=== PATIENT | female | born 1995 | race Caucasian/White ===

== ENCOUNTER 2022-11-21 12:36 | Outpatient (CLI) | payer OTHER, SELFPAY ==
[2022-11-21 12:47] VITALS: BMI 33.3
[2022-11-21 13:23] LABS: Microscopic, Urine URINE MICROSCOPIC (MICROSCOPIC)
[2022-11-21 13:28] VITALS: BP 133/84; PULSE 78; RESP 18; TEMP 36.9; O2SAT 99; BMI 33.3
[2022-11-21 13:29] LABS: Appearance,Urine CLEAR (Clear); Bilirubin,Urine Negative (Negative); Blood, Urine Negative (Negative); Color,Urine YELLOW (Yellow); Glucose,Urine (UA) Negative (Negative); Ketones,Urine Negative (Negative); Leukocyte Esterase,Urine Negative (Negative); Nitrate,Urine Negative (Negative); Protein,Urine Negative (Negative); Specific Gravity, Urine 1.015 (1.005-1.030); Urobilinogen,Urine 0.2 EU/dl (0.2)
[2022-11-21 13:55] LABS: Amphetamine/Metha Screen,Urine Negative ng/ml (<1000); Barbiturates Screen,Urine Negative ng/ml (<200); Benzodiazepines Screen,Urine Negative ng/ml (<200); Cocaine Screen,Urine Negative ng/ml (<300)
[2022-11-21 14:11] LABS: Cannabinoid Screen,Urine Negative ng/ml (<50); Methadone Screen,Urine Negative ng/ml (<300); Phencyclidine Screen,Urine Negative ng/ml (<25)
[2022-11-21 14:20] LABS: Opiate Screen,Urine Negative ng/ml (<300)
== END 2022-11-21 13:52 | disposition home or self-care (01) ==
LOC: OBOUT 12:38 → OB 12:38
PROVIDERS: Visit Provider Nurse Practitioner Obstetrics & Gynecology
DX: O60.03 Preterm labor without delivery, third trimester (principal); Z3A.37 37 weeks gestation of pregnancy
CPT/HCPCS: 59025; 80305; 81001; G0463

== ENCOUNTER 2022-11-25 17:48 | Outpatient (CLI) | payer OTHER, SELFPAY ==
[2022-11-25 18:05] VITALS: BMI 32.8
[2022-11-25 18:10] VITALS: BMI 32.8
[2022-11-25 18:46] LABS: Microscopic, Urine URINE MICROSCOPIC (MICROSCOPIC)
[2022-11-25 18:52] LABS: Appearance,Urine CLEAR (Clear); Bilirubin,Urine Negative (Negative); Blood, Urine Negative (Negative); Color,Urine YELLOW (Yellow); Glucose,Urine (UA) Negative (Negative); Ketones,Urine Negative (Negative); Leukocyte Esterase,Urine Negative (Negative); Nitrate,Urine Negative (Negative); PH,Urine 6.5 (5.0-8.5); Protein,Urine Negative (Negative); Specific Gravity, Urine 1.015 (1.005-1.030)
[2022-11-25 19:05] LABS: Amphetamine/Metha Screen,Urine Negative ng/ml (<1000); Bacteria,Urine Trace /lpf
[2022-11-25 19:06] LABS: Barbiturates Screen,Urine Negative ng/ml (<200)
[2022-11-25 19:07] LABS: Benzodiazepines Screen,Urine Negative ng/ml (<200); Cannabinoid Screen,Urine Negative ng/ml (<50)
[2022-11-25 19:08] LABS: Cocaine Screen,Urine Negative ng/ml (<300); Methadone Screen,Urine Negative ng/ml (<300)
[2022-11-25 19:09] LABS: Phencyclidine Screen,Urine Negative ng/ml (<25)
[2022-11-25 19:10] LABS: Opiate Screen,Urine Negative ng/ml (<300)
== END 2022-11-25 19:30 | disposition home or self-care (01) ==
LOC: OBOUT 17:50 → OB 17:50
PROVIDERS: PCP Obstetrics & Gynecology; Visit Provider Nurse Practitioner Obstetrics & Gynecology
DX: O47.03 False labor before 37 completed weeks of gestation, third trimester (principal); Z3A.37 37 weeks gestation of pregnancy
CPT/HCPCS: 59025; 80305; 81001; G0463

== ENCOUNTER 2022-12-03 14:04 | Inpatient (IN) | payer OTHER, SELFPAY ==
[2022-12-03] VITALS (12 sets, daily range): BP systolic 112–156; BP diastolic 75–90; PULSE 67–96; RESP 14–18; TEMP 36.2–36.8; O2SAT 96–100; BMI 32.8
[2022-12-03 09:03] LABS: Microscopic, Urine URINE MICROSCOPIC (MICROSCOPIC)
[2022-12-03 09:12] LABS: Basophils % 0.4 % (0.1-2.0); Eosinophils # 0.1 K/mm3 (0.0-0.4); Eosinophils % 1.2 % (0.1-12.0); Hematocrit 31.8 % (37.0-47.0); Hemoglobin 10.1 g/dL (12.2-16.2); Lymphocytes # 1.8 K/mm3 (0.7-4.5); Lymphocytes % 25.9 % (10-50); Mean Corpuscular HGB Conc 31.9 g/dL (31.8-35.4); Mean Corpuscular Hemoglobin 28.2 pg (27.0-31.2); Mean Corpuscular Volume 88.5 fl (81-99); Mean Platelet Volume 10.8 fl (7.4-10.4); Monocytes # 0.3 K/mm3 (0.1-1.0); Monocytes % 4.8 % (1.7-9.3); Neutrophils # 4.7 K/mm3 (1.8-7.8); Neutrophils % 67.8 % (37.0-80.0); Platelet Count 245 K/mm3 (142-424); Red Cell Distribution Width 15.1 % (11.5-17.5); White Blood Count 6.9 K/mm3 (4.8-10.8)
[2022-12-03 09:17] LABS: Anion Gap 13.2 mEq/L (5-15); Blood Urea Nitrogen 4 mg/dl (7-17); Calcium 8.5 mg/dl (8.4-10.2); Carbon Dioxide 21 mmol/L (22.0-30.0); Chloride 108 mmol/L (98-107); Creatinine Clearance Estimated 252 mL/min (50-200); Estimated Glomerular Filt Rate 147 ml/min (>60); GFR (African American) 178 ML/MIN (>60); Glucose 72 mg/dl (74-100); Potassium 4.2 mmoL/L (3.5-5.1); Sodium 138 mmol/L (136-145)
--- NOTE | 2022-12-03 10:10 | EXP.HP ---
History of Present Illness *Admission Date: 12/03/22 *Reason for visit:: contractions/ pain *History of present illness: Cecily is a 27yo who is presenting today for abdominal pain, and contractions at 38w6d gestation. LOIS: [] based on []. She is a previous section and desires a repeat with salpingectomy. She declines trial of labor as she would like her salpingectomy at the time of delivery. She had a CS with her G1 secondary to NR FHT and then two successful VBACs. is also complicated by tobacco use, obesity, and scant care. On presentation, patient denied leakage of fluid, vaginal bleeding, vaginal discharge. Reports painful contractions. Endorses good movement. No significant medical or surgical history. reports an allergy to amoxicillin that causes her throat to swell. GBS bacturia B+/ AB neg/RNI/ / HBV NR/ HCV NR/ RPR NR/ HIV NR/NG&CT neg/UDS neg PFSH PFS Disclaimer: The information contained in this section may have been updated after the patient was seen, as this information can be updated by other users. Medical History delivery delivered (vaginal after ) Surgical History History of cholecystectomy Family History Other Alcoholism Anemia Asthma Cancer Coronary artery disease Diabetes Heart attack Hyperlipidemia Hypertension Kidney disease Stroke Substance abuse Social History Smoking Status: Current every day smoker alcohol intake: never substance use type: denies use current occupational status: employed Travel in the last 8 weeks: None Review of Systems Review of Systems Review of systems (narrative): Const: Denies headaches, fever/chills, weakness Eyes: Denies change in vision Cardiorespiratory: Denies chest pain, shortness of breath, and cough GI: + abdominal pain, change in BM, nausea, vomiting, constipation, diarrhea : denies pelvic pain, genital lesions, vaginal itching and odor; denies urinary urgency, frequency, dysuria and hematuria Psych: Denies depression and anxiety Meds Home Medications and Allergies Home Medications Medication Instructions Recorded Confirmed Type ferrous sulfate 325 mg (65 mg 325 mg PO DAILY 11/24/22 11/30/22 History iron) tablet (FeroSul) vits no.126-ferrous fum tab PO DAILY 11/24/22 11/30/22 History 28 mg iron-folic acid 800 mcg tablet (Classic ) pyridoxine (vitamin B6) 50 mg 50 mg PO DAILY 11/24/22 11/30/22 History capsule (Vitamin B-6) New Prescriptions to Start Prescriptions: Allergies Allergy/AdvReac Type Severity Reaction Status Date / Time amoxicillin Allergy Verified 11/30/22 09:04 Exam Data for Last 24 hours Vital signs and Labs for Last 24 Hours: Laboratory Results - last 24 hr 12/03/22 08:55: WBC 6.9, RBC 3.60 L, Hgb 10.1 L, Hct 31.8 L, MCV 88.5, MCH 28.2, MCHC 31.9, RDW 15.1, Plt Count 245, MPV 10.8 H, Neut % (Auto) 67.8, Lymph % (Auto) 25.9, [place] % (Auto) 4.8, Eos % (Auto) 1.2, Baso % (Auto) 0.4, Neut # (Auto) 4.7, Lymph # (Auto) 1.8, [place] # (Auto) 0.3, Eos # (Auto) 0.1, Baso # (Auto) 0.0, Sodium 138, Potassium 4.2, Chloride 108 H, Carbon Dioxide 21 L, Anion Gap 13.2, BUN 4 L, Creatinine 0.50 L, Estimated Creat Clear 252, Estimated GFR 147, Est GFR ( Amer) 178, Glucose 72 L, Calcium 8.5 I & O for Last 24 hours: Intake & Output 11/30/22 12/01/22 12/02/22 12/03/22 23:59 23:59 23:59 23:59 Weight 210 lb Constitutional Constitutional: no acute distress *Routine HEENT Exam Head: Present normocephalic Eye: Present EOMI and PERRL ENT: Present mucous membranes moist *Routine Neck Exam Neck: Present supple; Absent lymphadenopathy *Routine Respiratory Exam Respir
[2022-12-03 10:15] LABS: Appearance,Urine CLEAR (Clear); Blood, Urine Negative (Negative); Color,Urine YELLOW (Yellow); Glucose,Urine (UA) Negative (Negative); Ketones,Urine Negative (Negative); Leukocyte Esterase,Urine 1+ (Negative); Nitrate,Urine Negative (Negative); PH,Urine 6.5 (5.0-8.5); Protein,Urine TRACE (Negative); Specific Gravity, Urine >= 1.030 (1.005-1.030)
[2022-12-03 10:22] LABS: Bilirubin,Urine Negative (Negative)
[2022-12-03 10:28] LABS: Benzodiazepines Screen,Urine Negative ng/ml (<200)
[2022-12-03 10:29] LABS: Amphetamine/Metha Screen,Urine Negative ng/ml (<1000); Barbiturates Screen,Urine Negative ng/ml (<200)
[2022-12-03 10:30] LABS: Cannabinoid Screen,Urine Negative ng/ml (<50); Methadone Screen,Urine Negative ng/ml (<300)
[2022-12-03 10:31] LABS: Bacteria,Urine 1+ /lpf; Cocaine Screen,Urine Negative ng/ml (<300); Squamous Epithelial Cell,Urine Occasional #/hpf (0-5)
[2022-12-03 10:32] LABS: Opiate Screen,Urine Negative ng/ml (<300); Phencyclidine Screen,Urine Negative ng/ml (<25)
--- NOTE | 2022-12-03 12:57 | SW/DCPLANNER ---
Addendum entered by Oriana Whyte 12/06/22 12:14: Per OB Nursing staff (Chitra) patient was appropriate w/ infant and urine drug screen was negative. Patient discharged home over the weekend. Original Note: I received a referral on this patient regardin visits, lives with family and unsure of custody of other children. Patient is planned to have a CSection this afternoon. Patient stated that is expected to deliver a male ( Norberto Buckley Carito). Patient stated that 's father is NOT involved. Patient will reside with her grandmother (Claire Palmer) and three other children (Jordan Carito 10/08/13, [place] 06/25/15 and [place]aliguanako Carito 09/30/20) at [address] [place] [address]. Patient's contact number is [phone]. Patient stated that she did have a brief Social Service interaction with three other children: open and closed case/children never removed. Patient stated that she will be established with [facility] and has the following items at home: crib, carseat, clothing, diapers and plans to bottle feed. PED MD will be Dr Powell. Patient stated that she will have transportation to all follow up appointments. Patient explained that she only had three visits due to waiting on for appointment, one at then transferred to [facility] w/ Dr Nunez. OB staff stated that after delivery infant urine drug screen and cord will be collected. I have asked OB staff to please follow up with myself or Central Intake after delivery if any further assistance is needed.
--- NOTE | 2022-12-03 15:55 | EXP.OP.NOTE ---
Date of procedure: 12/03/22 Pre-op Diagnosis:: 1. 38 weeks 6days gestation, Veliz 2. Previous delivery, desires repeat 3. Presented in Labor 4. Advanced cervical dilation 5. Rh Positive Post-op Diagnosis:: 1. 38 weeks 6days gestation, Veliz 2. Previous delivery, desires repeat 3. Presented in Labor 4. Advanced cervical dilation 5. Rh Positive Procedure performed:: Repeat Delivery with bilateral salpingectomy Surgeon:: Rafia Nunez DO Car Repair Supervisor(s):: Christian Thomason DO REBEAMER:: Other (Sean Gunn) Anesthesia: spinal Estimated blood loss (mL): 800 Operative findings:: 1. Live viable Male infant: Jared. Weight: 6pounds 12ounces. Apgars 9 and 10 at 1 and 5 minutes respectively 2. Normal-appearing fallopian tubes and ovaries bilaterally Operative note:: Medications: 5 mg/kg IV gentamicin and 900 mg of IV clindamycin EBL: 800mL Clothing Cutter: Dr. Story Summary: Ninoska Arzate is a 27yo who came to L&D with regular painful contractions that she reported started last night. She was noted to be 5cm and decision was made to proceed with a repeat delivery and bilateral salpingectomy. Procedure explained in its entirety. The patient was counseled on the risks and benefits of section including bleeding, vascular injury, infection, and injury to the surrounding structures. Hemorrhage requiring life saving blood transfusion resulting in blood born viral infection or allergic reaction was explained and the patient consented to blood transfusion. Possible need for further operative measures prolonging recovery time and hospitalization reviewed to include hysterectomy. Procedure explained in its entirety and patient had no further questions. Consented to procedure. The patient was taken back to the operating room where adequate Spinal anesthesia was obtained. Pneumatic compression stockings applied to lower extremities. Above medications were given for infection prophylaxis. She was placed in the dorsal supine position Urinary catheter was placed, clear urine noted. The patient was prepped and draped in sterile fashion. Anesthesia was tested and and found to be adequate. A Pfannenstiel skin incision was made with the scalpel. Subcutaneous bleeding vessels were cauterized with the bovie. The incision was taken down to the fascia with the bovie. The fascia was knicked in the midline and extended laterally with blunt dissection. The superior aspect of the fascia was grasped with Nadine clamps and the rectus muscle was taken down bluntly, this was repeated interiorly. The rectus muscles were in the midline, peritoneum was identified and entered sharply. Rolly O retractor was placed and the bladder was noted to be out of the operative field. The lower uterine segment was easily identified, sharply incised, and entered bluntly with the surgeon's index finger. Incision was then extended in a superior and inferior fashion by blunt separation. The fetus was in cephalic presentation. The head was carefully elevated out of the pelvis. Fundal pressure was applied when head was brought into incision. The infants head was delivered without difficulty. The shoulder and body followed without complication. The mouth and nose were suctioned with a bulb. The umbilical cord was clamped and cut after 30seconds. was taken to warmer for evaluation by Clothing Cutter. Cord blood was collected. The placenta was delivered via manual extraction and found to be normal and intact. 3 vessel cord was noted. IV Pitocin was initiated. Inside of the uterus was gently cleared of blood and clots with lap sponge. The hysterotomy was closed with 0 Vicryl in a running locked fashion. Imbricating stitch then run with 0 Vicryl. The lower uterine segment was visualized and noted to be hemostatic The distal portion of the right fallopian tube was grasped with [place] clamp and elevated away from surrounding structures. Bovie used to make
--- NOTE | 2022-12-03 15:56 | SUR.OPER ---
1452: Viable male born. 1505: RT called stating ABG was clotted, MD Nunez made aware, no new orders. 1530: MD Nunez made aware of QBL greater than 1000 mL. QBL protocol initiated at this time. 2 units PRBCs placed on hold. Second PIV started at this time.
--- NOTE | 2022-12-03 16:42 | P.PNANES_ITS ---
[facility] Disclaimer: The information contained in this section may have been updated after the patient was seen, as this information can be updated by other users. Medical History delivery delivered (vaginal after ) Surgical History History of cholecystectomy Family History Other Alcoholism Anemia Asthma Cancer Coronary artery disease Diabetes Heart attack Hyperlipidemia Hypertension Kidney disease Stroke Substance abuse Social History Smoking Status: Current every day smoker alcohol intake: never substance use type: denies use current occupational status: employed Travel in the last 8 weeks: None [facility] Anesthesia Checklist Patient Identification Patient Identification: Arm Band and Family Structural Data Admitted From: Inpatient Planned Operative Procedure/s: Consent for Planned Operative Procedure(s) Verified: Yes Verified Documents: Surgical Consent and History and Physical NPO Status Verified Time NPO: 00:00 Additional verifications Patient : Yes Anesthesia Reactions: No Hx Blood Transfusions: No Blood Transfusion Reaction: No Cephalosporin Allergy: No Previous Colonoscopy: No Airway Assessment Mallampati Score:: Class I C-Spine Mobility Assessed: Yes TMJ Mobility Assessed: Yes Dentition: Good Dentition Neurological Assessment Level of Consciousness: Awake, Alert, Appropriate and Follows Commands Hx Seizures: No Numbness or tingling in extremities: No Anesthesia Plan Anesthesia Risk discussed: Yes ASA Class: I Anesthesia Type: Spinal Preoperative Comments Pre-Operative Comments: 38 weeks plus 6 days,
--- NOTE | 2022-12-03 16:45 | EXP.ANES.I ---
[facility] Anesthesia Record Part I Anesthesia Record I Intake, IV Amount: 900 Hydration: Adequate Estimated blood loss (mL): 1,516 Urine output (mL): 100 Blood Products used (#): none Blood Pressure: 112/85 SaO2: 100 Pulse Rate: 77 Airway Patency: Patent Respiratory Rate: 16 Temperature: 97.1 F Patient is:: Drowsy and Stable Stable to PACU at:: 15:54 Comments:: Tap block done in recovery room.
[2022-12-03 16:55] LABS: Appearance,Urine/Cath CLEAR (Clear); Bilirubin,Cath Negative (Negative); Blood, Urine/Cath Negative (Negative); Color,Urine/Cath YELLOW (Yellow); Glucose,Urine/Cath (UA) Negative (Negative); Ketones,Urine/Cath 3+ (Negative); Leukocyte Esterase,Cath Negative (Negative); Microscopic,Cath URINE MICROSCOPIC (MICROSCOPIC); Nitrate,Cath Negative (Negative); PH,Urine/Cath 6.5 (5.0-8.5); Protein,Urine/Cath Negative (Negative)
--- NOTE | 2022-12-03 17:02 | SUR.PHASEI ---
1622- Spoke to MD Nunez, asked if she would like pt to have IM Methergine d/t QBL loss >1000mL, d/t pt's HTN give 1,000mcg of Cytotec RC ONCE NOW 1629- Confirmed dosage w/ Shayan, pharmD 1631- cytotec given at this time per Tomas RN
[2022-12-03 18:17] LABS: Bacteria,Urine/Cath TRACE /lpf
[2022-12-04 04:33] VITALS: BP 127/84; PULSE 81; RESP 18; TEMP 36.6; O2SAT 100
[2022-12-04 07:21] LABS: Basophils % 0.2 % (0.1-2.0); Eosinophils # 0.1 K/mm3 (0.0-0.4); Eosinophils % 0.6 % (0.1-12.0); Hematocrit 26.9 % (37.0-47.0); Lymphocytes # 1.7 K/mm3 (0.7-4.5); Lymphocytes % 22.7 % (10-50); Mean Corpuscular HGB Conc 31.9 g/dL (31.8-35.4); Mean Corpuscular Hemoglobin 27.8 pg (27.0-31.2); Mean Corpuscular Volume 87.3 fl (81-99); Mean Platelet Volume 11.7 fl (7.4-10.4); Monocytes # 0.4 K/mm3 (0.1-1.0); Neutrophils # 5.5 K/mm3 (1.8-7.8); Neutrophils % 71.6 % (37.0-80.0); Platelet Count 186 K/mm3 (142-424); Red Blood Count 3.09 M/mm3 (4.20-5.40); Red Cell Distribution Width 15.3 % (11.5-17.5); White Blood Count 7.7 K/mm3 (4.8-10.8)
[2022-12-04 08:20] LABS: Hemoglobin 8.6 g/dL (12.2-16.2)
[2022-12-04 08:45] VITALS: BP 118/75; PULSE 87; RESP 18; TEMP 36.7; O2SAT 98
--- NOTE | 2022-12-04 08:58 | EXP.OB.SPCS ---
OB - PN: Subj Interval history: Cecily is a 27yo POD#1 from a repeat CD at 38w6d and BSG secondary to labor and advanced dilation. No complications during delivery. She is doing well. Bottle feeding male , desires circumcision. Reports lochia is scant. She is ambulating, tolerating PO, voiding, and +BM. Denies dysuria. reports pain is controlled with PO regimen. mild incision pain and cramping uterine pain. Patient comments: no complaints, pain well controlled, incisional pain, tolerating diet and flatus present baby status: doing well and bottle feeding well Page feeding status: exclusively bottle feeding OB - PN: Obj Exam Vital signs: Temp Pulse Resp BP Pulse Ox O2 Del Method 98 F 81 18 127/84 100 Room Air 12/04/22 04:33 12/04/22 04:33 12/04/22 04:33 12/04/22 04:33 12/04/22 04:33 12/04/22 04:33 Narrative: General: patient is alert oriented in no acute distress and responds appropriately to questions. Appears to be in minimal pain. resting in bed and doing well HEENT: NCAT, EOMI, moist mucous membranes, neck supple with full ROM Cardiovascular: RRR +S1/S2, no murmurs or rubs Pulmonary: Clear to auscultation bilaterally, nonlabored breathing, symmetric chest rise Abdominal: Fundus at the umbilicus, firm, and tenderness appropriate for the period. Extremities: trace edema, no tenderness or cyanosis noted Skin: Normal turgor, intact, warm.? Negative for erythema, pallor, petechia, or lesions Neurologic: Negative for sensory or motor deficit Psychiatric: Normal affect, normal thought process, good judgment and insight, no depression or anxious mood appreciated. Incision site: Mildly tender.? Dressing in place. No oozing, bleeding, erythema, drainage or signs of infection appreciated around the border of the dressing. Urinary Catheter Management Gallegos: Cath placed during this visit: no OB - PN: Obj Data Labs 12/04/22 07:08 12/03/22 08:55 Labs: Laboratory Results - last 24 hr 12/03/22 08:20: Urine Color Yellow, Urine Appearance Clear, Urine pH 6.5, Ur Specific [place] >= 1.030, Urine Protein Trace, Urine Glucose (UA) Negative, Urine Ketones Negative, Urine Blood Negative, Urine Nitrate Negative, Urine Bilirubin Negative, Urine Urobilinogen 1.0, Ur Leukocyte Esterase 1+ A, Urine RBC None, Urine WBC 5-10, Ur Squamous Epith Cells Occasional, Urine Bacteria 1+, Urine Opiates Screen Negative, Urine Methadone Screen Negative, Ur Barbituates Screen Negative, Ur Phencyclidine Scrn Negative, Ur Amphetamines Screen Negative, U Benzodiazepines Scrn Negative, Urine Cocaine Screen Negative, U Marijuana (THC) Screen Negative 12/03/22 08:55: WBC 6.9, RBC 3.60 L, Hgb 10.1 L, Hct 31.8 L, MCV 88.5, MCH 28.2, MCHC 31.9, RDW 15.1, Plt Count 245, MPV 10.8 H, Neut % (Auto) 67.8, Lymph % (Auto) 25.9, [place] % (Auto) 4.8, Eos % (Auto) 1.2, Baso % (Auto) 0.4, Neut # (Auto) 4.7, Lymph # (Auto) 1.8, [place] # (Auto) 0.3, Eos # (Auto) 0.1, Baso # (Auto) 0.0, Sodium 138, Potassium 4.2, Chloride 108 H, Carbon Dioxide 21 L, Anion Gap 13.2, BUN 4 L, Creatinine 0.50 L, Estimated Creat Clear 252, Estimated GFR 147, Est GFR ( Amer) 178, Glucose 72 L, Calcium 8.5, Blood Type B Positive, Antibody Screen Negative, Crossmatch (AHG) See Detail 12/03/22 14:36: Urine Color Yellow, Urine Appearance Clear, Urine pH 6.5, Ur Specific [place] 1.020, Urine Protein Negative, Urine Glucose (UA) Negative, Urine Ketones 3+, Urine Blood Negative, Urine Nitrate Negative, Urine Bilirubin Negative, Urine Urobilinogen 1.0, Ur Leukocyte Esterase Negative, Urine RBC None, Urine WBC None, Ur Squamous Epith Cells 3-5, Urine Bacteria Trace 12/03/22 17:20: Blood Type Confirm B Positive 12/04/22 07:08: WBC 7.7, RBC 3.09 L, Hgb 8.6 L D, Hct 26.9 L, MCV 87.3, MCH 27.8, MCHC 31.9, RDW 15.3, Plt Count 186, MPV 11.7 H, Neut % (Auto) 71.6, Lymph % (Auto) 22.7, [place] % (Auto) 5.0, Eos % (Auto) 0.6, Baso % (Auto) 0.2, Neut # (Auto) 5.5, Lymph #
[2022-12-04 20:24] VITALS: BP 130/84; PULSE 77; RESP 16; TEMP 37.1
[2022-12-05 08:45] VITALS: BP 115/76; PULSE 85; RESP 17; TEMP 36.7; O2SAT 98
--- NOTE | 2022-12-05 10:39 | HMH.PNOBGP) ---
DS: Providers Date of admission: 12/03/22 14:04 Primary care physician: Nguyễn Adams MD Admitting clinician: Rafia Nunez Attending physician on admission: Rafia Nunez Consults: 12/03/22 10:30 Care Management Consult [Consult to Case Management] [CONS] Routine Reason For Consult: only 3 OB visits, lives with family, unsure of custody of other children, Several PCS 4 questions Attending physician on discharge: Rafia Nunez Discharging clinician: Rafia Nunez Anticipated date of discharge: 12/05/22 DS: Diagnosis Discharge Diagnosis (1) Obesity: Status: Acute Code(s): E66.9 - Obesity, unspecified Qualifiers: Body mass index: BMI 32.0-32.9 Obesity classification: adult class 1 (BMI 30 - 34.9) Obesity type: unspecified obesity type (2) Tobacco smoking affecting : Status: Acute Code(s): O99.330 - Smoking (tobacco) complicating , unspecified trimester Qualifiers: Trimester: third trimester Qualified Code(s): O99.333 - Smoking (tobacco) complicating , third trimester (3) : Status: Acute Code(s): Z34.90 - Encounter for supervision of normal , unspecified, unspecified trimester Problem details: Stable. POD#2 s/p RLTCS and BSG -Doing well. VSS. Serial lochia and fundal checks. -B+/antibody negative -Bottle feeding, male -Desires circumcision, Peds to complete -Contraception: BSG -Follow-up 2 weeks for routine visit and incision check #Anemia -Hemoglobin: 10.1--> 8.6 - asymptomatic anemia noted. Vitals stable. Continue monitoring. DC with Fe -EBL: 800mL -IV Iron ordered for this morning -Continue PO at discharge home, discussed with pt #Rubella non-immune -vaccinated -Dispo: home today pending mother/infant status OB - DS: Summary Hospital course: Cecily is a 27yo POD#2 from a repeat CD at 38w6d and BSG secondary to labor and advanced dilation. No complications during delivery. She is doing well. Bottle feeding male infant, desires circumcision. Reports lochia is scant. She is ambulating, tolerating PO, voiding, and +BM. Denies dysuria. reports pain is controlled with PO regimen. mild incision pain and cramping uterine pain. Patient is doing well and ready for discharge home today. Routine discharge instructions reviewed with the patient in detail and patient voiced understanding. All questions were addressed. Patient will follow-up in my office on Tuesday or Tuesday. She did have a small amount of bleeding at the midline of her incision which was reinforced with Steri-Strips. Otherwise the incision is clean dry and intact with no signs of infection. Incisional care reviewed with the patient and she voiced understanding. Peripartum Data Procedures: Procedures Operation Date: 12/03/22 14:10 Actual Procedure Side Surgeon p Repeat Delivery with bilateral salpingectomy Rafia Nunez DO 1: Gender: Male Disposition of : home Status at Discharge Functional status at discharge: independent ambulation Overall status at discharge: patient is back to baseline Time Spent with Patient Total time spent providing and/or coordinating discharge services: Quality: VTE Documentation of Mechanical Device: SCDs/IPCs Objective Vital signs: Temp Pulse Resp BP Pulse Ox O2 Del Method 98.0 F 85 17 115/76 98 Room Air 12/05/22 08:45 12/05/22 08:45 12/05/22 08:45 12/05/22 08:45 12/05/22 08:45 12/05/22 08:45 Discharge Plan Patient Discharge Instructions ACTIVITY: Continue current activity and Ambulate as tolerated DIET: continue same diet Follow up Plan Condition at discharge:: Stable Home Medications Medication Instructions Recorded Confirmed Type ferrous sulfate 325 mg (65 mg 325 mg PO DAILY 11/24/22 11/30/22 History iron) tablet (FeroSul) vits no.126-
--- NOTE | 2022-12-07 11:48 | EXP.ANES.II ---
[facility] Anesthesia Record Part II Anesthesia Record Part II Discharge Time: 16:34 Destination: Obstetric PACU nurse assessment reviewed?: Yes Patient Condition:: Good Anesthesia Complications:: None Swallowing reflex intact?: Yes Airway Patency: Patent Cyanosis?: No Blood Pressure: 129/75 SaO2: 100 Respiratory Rate: 16 Pulse Rate: 73 Temperature: 97.5 F Mental Status: Alert & Oriented Pain level:: 0 Nausea and/or vomitting:: None Intake, IV Amount: 0 Hydration: Adequate
[2022-12-07 11:49] VITALS: BP 129/75; PULSE 73; RESP 16; TEMP 36.4; O2SAT 100
== END 2022-12-05 11:30 | disposition home or self-care (01) | DRG 785 ==
LOC: OBOUT 14:05 → OB 14:05
PROVIDERS: Admitting Provider Obstetrics & Gynecology; PCP Family Medicine; Visit Provider Obstetrics & Gynecology
PROC: 10D00Z1 Extraction of Products of Conception, Low, Open Approach (ICD-10-PCS; principal; 2022-12-03 14:10)
DX: O34.211 Maternal care for low transverse scar from previous cesarean delivery (principal); N85.8 Other specified noninflammatory disorders of uterus; O75.82 Onset (spontaneous) of labor after 37 completed weeks of gestation but before 39 completed weeks gestation, with delivery by (planned) cesarean section; Z3A.38 38 weeks gestation of pregnancy; Z37.0 Single live birth; O99.333 Smoking (tobacco) complicating pregnancy, third trimester; F17.210 Nicotine dependence, cigarettes, uncomplicated
CPT/HCPCS: 59514; 58700; 36415; 59025; 80048; 80305; 81001; 82800; 85025; 86850; 87086; 90707; 94761; C9290; G0283; J1756